=== PATIENT | female | born 1960 | race African-American/Black ===

== ENCOUNTER 2017-06-10 09:27 | Emergency (ER) | payer OTHER ==
[~2017-06-10] VITALS: Ht 167.6 cm; Wt 117.9 kg
[~2017-06-10 09:27] MED LIST: ACCURETIC 10-11 EACH PO; CEFTIN 250 MG250 MG PO; CLARITIN10 MG PO; PREDNISONE 20 M20 M1 PO; PROMETHAZINE-C120 ML PO; QUINAPRIL-HCTZ1 EAC2 PO; TRAMADOL 50 MG50 MG PO; ZANTAC 150MG T150 M1 PO; ZPAK PO
[2017-06-10 10:32] LABS: ABSOLUTE NEUTROPHILS 5.6 thou/uL (1.4-8.2); BASOPHILS 0.9 % (0.0-2.0); EOSINOPHILS 3.1 % (0.0-3.0); HEMATOCRIT 39.3 % (37.0-47.0); LYMPHOCYTES 18.5 % (24.0-44.0); MCH 28.3 pg (26.0-34.0); MCHC 33.1 g/dL (28.0-37.0); MCV 85.3 fL (80.0-100.0); MONOCYTES 6.3 % (1.0-8.0); PLATELET COUNT 197 thou/uL (150-400); POLYS 71.2 % (36.0-66.0); RBC 4.62 mil/uL (4.20-5.00); RDW 14.1 % (10.5-14.5); WBC 7.9 thou/uL (4.0-11.0)
[2017-06-10 10:36] LABS: MANUAL DIFF NO
[2017-06-10 10:39] LABS: URINE BLOOD NEGATIVE (Negative); URINE COLOR YELLOW; URINE GLUCOSE-RANDOM* NEGATIVE (Negative); URINE KETONES TRACE (Negative); URINE LEUKOCYTES-REFLEX NEGATIVE (Negative); URINE PROTEIN (DIPSTICK) TRACE (Negative); URINE SPECIFIC GRAVITY 1.025 (1.003-1.035); URINE UROBILINOGEN 0.2 E.U./dl (0.2-1.0)
[2017-06-10 10:45] LABS: POTASSIUM 3.5 mmol/L (3.5-5.1)
[2017-06-10 10:46] LABS: ICTOTEST (BILI CONFIRMATORY) Negative (Negative); URINE BILIRUBIN NEGATIVE (Negative)
[2017-06-10 10:51] LABS: ALBUMIN 3.3 g/dL (3.4-5.0); TOTAL BILIRUBIN 0.4 mg/dL (<0.1-1.0); TOTAL PROTEIN 7.1 g/dL (6.4-8.2)
[2017-06-10] MEDS ORDERED: ZOFRAN ODT4 M1 PO (11:17)
== END 2017-06-10 11:47 | disposition home or self-care (01) ==
LOC: ER 09:27
PROVIDERS: Physician Assistant
DX: J02.0 Streptococcal pharyngitis (principal); R11.0 Nausea; F17.210 Nicotine dependence, cigarettes, uncomplicated; F10.99 Alcohol use, unspecified with unspecified alcohol-induced disorder; I10 Essential (primary) hypertension; Z88.1 Allergy status to other antibiotic agents; Z98.890 Other specified postprocedural states

== ENCOUNTER 2018-01-15 00:44 | Emergency (ER) | payer OTHER ==
[~2018-01-15] VITALS: Ht 162.6 cm; Wt 117.9 kg
[~2018-01-15 00:44] MED LIST changes: +ZOFRAN ODT4 M1 PO
[2018-01-15] MEDS ORDERED: TRAMADOL 50 MG50 MG PO (02:07)
== END 2018-01-15 02:28 | disposition home or self-care (01) ==
LOC: ER 00:44
DX: M17.0 Bilateral primary osteoarthritis of knee (principal); G89.29 Other chronic pain; I10 Essential (primary) hypertension; Z90.49 Acquired absence of other specified parts of digestive tract; F17.210 Nicotine dependence, cigarettes, uncomplicated; Z88.1 Allergy status to other antibiotic agents